=== PATIENT | female | born 1950 | race Two or more races ===

== ENCOUNTER 2025-03-11 16:21 | Inpatient (IN) | payer MEDICARE, OTHER ==
[~2025-03-11] VITALS: Ht 157.5 cm; Wt 109.8 kg
[2025-03-11] MEDS ORDERED: diphenhydrAMINE 50 MG/1 ML VIAL ONE (16:45)
[2025-03-11] MEDS ORDERED: HALOPERIDOL LACTATE 5 MG/1 ML VIAL ONE (16:45)
[2025-03-11] MEDS ORDERED: LORAZEPAM 2 MG/1 ML VIAL ONE (16:46)
[2025-03-11] MEDS: LORAZEPAM 2 MG/1 ML VIAL IM ONE (16:54)
[2025-03-11] MEDS: HALOPERIDOL LACTATE 5 MG/1 ML VIAL IM ONE (16:54)
[2025-03-11] MEDS: diphenhydrAMINE 50 MG/1 ML VIAL IM ONE (16:54)
[2025-03-11 16:57] LABS: PLATELET COUNT (AUTO) 236 K/uL (179-408); RED BLOOD CELL COUNT(AUTO) 4.32 MIL/uL (3.63-4.92); RED CELL DISTRIBUTION WIDTH 13.6 % (12.3-17.7); WHITE BLOOD COUNT (AUTO) 5.2 K/uL (3.8-11.8)
[2025-03-11 17:03] LABS: CREATININE 0.7 mg/dL (0.6-1.3); SODIUM SERUM 139 mmol/L (136-145); UREA NITROGEN, BLOOD 12 mg/dL (7-18)
[2025-03-11 17:04] LABS: ETHANOL < 3 MG/DL (0-10)
[2025-03-11] MEDS ORDERED: FLUT1BLS IH (17:17)
[2025-03-11] MEDS ORDERED: MAGN400O6 PO (17:17)
[2025-03-11] MEDS ORDERED: APIX5TAB PO (17:17)
[2025-03-11] MEDS ORDERED: ACET-2154 PO (17:17)
[2025-03-11] MEDS ORDERED: ASCO500C18 PO (17:17)
[2025-03-11] MEDS ORDERED: BISA10SU61 RC (17:17)
[2025-03-11] MEDS ORDERED: CHOL500062 PO (17:17)
[2025-03-11] MEDS ORDERED: SERT100T PO (17:17)
[2025-03-11] MEDS ORDERED: MULT-594 PO (17:17)
[2025-03-11] MEDS ORDERED: QUET100T PO (17:17)
[2025-03-11] MEDS ORDERED: MONT10TA33 PO (17:17)
[2025-03-11] MEDS ORDERED: BENA1TAB71 PO (17:17)
[2025-03-11] MEDS ORDERED: ALBU2.5V13 NEB (17:17)
[2025-03-11] MEDS ORDERED: ACET-2605 PO (17:17)
[2025-03-11] MEDS ORDERED: FLUT16SP BNOSTRILS (17:17)
[2025-03-11 17:19] LABS: ASPARTATE AMINOTRANSFERASE 17 U/L (15-37); TOTAL PROTEIN, SERUM 7.0 g/dL (6.4-8.2)
[2025-03-11 18:41] LABS: *BILIRUBIN,URIN 1+ (NEGATIVE); *BLOOD, URINE NEGATIVE (NEGATIVE); *COLOR,URINE DARK YELLOW (YELLOW); *KETONES,URINE TRACE (NEGATIVE); *PROTEIN,URINE 1+ (NEGATIVE); *UROBILINOGEN,URINE 8.0 E.U./dl (NORMAL); LEUKOCYTE ESTERASE ,URINE 2+ (NEGATIVE); NITRITE, URINE NEGATIVE (NEGATIVE); UGLUCOSE NEGATIVE (NEGATIVE)
[2025-03-11 18:43] LABS: *CLARITY,URINE HAZY (CLEAR)
[2025-03-11] MEDS ORDERED: MAGNESIUM HYDROXIDE 30 ML LIQUID UDC PO PRN (18:45)
[2025-03-11] MEDS ORDERED: BISACODYL 10 MG SUPP.RECT RC PRN (18:45)
[2025-03-11] MEDS ORDERED: ACETAMINOPHEN ES 500 MG TABLET- SA PATIENTS-PAIN ONLY PO PRN (18:45)
[2025-03-11 18:58] LABS: *AMPHETAMINE, URINE NEGATIVE (NEGATIVE); *BARBITURATE, URINE NEGATIVE (NEGATIVE); *BENZODIAZEPINE, URINE NEGATIVE (NEGATIVE); *CANNABINOID, URINE NEGATIVE (NEGATIVE); *COCCAINE, URINE NEGATIVE (NEGATIVE); *OPIATE, URINE NEGATIVE (NEGATIVE); *PHENCYCLIDINE SCREEN,URINE NEGATIVE (NEGATIVE); FENTANYL, URINE NEGATIVE (NEGATIVE)
[2025-03-11 19:04] LABS: SQUAMOUS EPITHELIAL CELL,UR MANY /HPF (NONE SEEN)
[2025-03-12 00:08] VITALS: BP 122/66
[2025-03-12] MEDS ORDERED: LORAZEPAM 1 MG TABLET PO PRN ×2 (01:00)
[2025-03-12] MEDS ORDERED: MAG HYDROX/AL HYDROX/SIMETH 30 ML LIQUID UDC PO PRN (01:00)
[2025-03-12] MEDS ORDERED: TEMAZEPAM 7.5 MG CAPSULE PO PRN ×2 (01:00)
[2025-03-12] MEDS ORDERED: MAGNESIUM HYDROXIDE 30 ML LIQUID UDC PO PRN (01:00)
[2025-03-12 01:15] VITALS: BP 111/74; TEMP 97.5; O2SAT 95
[2025-03-12] MEDS: BLOOD SUGAR DIAGNOSTIC 1 EACH STRIP VI ONE (01:21)
[2025-03-12] MEDS ORDERED: QUET50TA PO (01:23)
[2025-03-12] MEDS ORDERED: ASCORBIC ACID 500 MG TABLET PO SCH (06:00)
[2025-03-12 07:58] VITALS: BP 120/61; TEMP 98; O2SAT 98
[2025-03-12 08:23] LABS: GLUCOSE FASTING 84.0 mg/dL (70-115)
[2025-03-12] MEDS: CHOLECALCIFEROL 1,000 UNIT TABLET PO SCH (09:25)
[2025-03-12] MEDS: MULTIVITAMINS,THERAPEUTIC TABLET PO SCH (09:25)
[2025-03-12] MEDS: APIXABAN 5 MG TABLET PO SCH (09:25)
[2025-03-12] MEDS: ASCORBIC ACID 500 MG TABLET PO SCH (09:25)
[2025-03-12] MEDS: MONTELUKAST SODIUM 10 MG TABLET PO SCH (09:50)
[2025-03-12] MEDS: HYDROCHLOROTHIAZIDE 12.5 MG CAPSULE PO SCH (09:50)
[2025-03-12] MEDS: BENAZEPRIL HCL 10 MG TABLET PO SCH (09:50)
[2025-03-12] MEDS ORDERED: NA P133E RC (09:57)
[2025-03-12 15:24] VITALS: BP 124/64; TEMP 98; O2SAT 96
[2025-03-12 20:49] VITALS: BP 94/56; TEMP 97.5; O2SAT 96
[2025-03-12] MEDS: QUETIAPINE FUMARATE 25 MG TABLET PO SCH (21:34)
[2025-03-13 08:05] VITALS: BP 101/62; TEMP 98.2; O2SAT 98
[2025-03-13] MEDS: LACTULOSE 20 G/30 ML LIQUID UDC PO ONE (13:04)
[2025-03-13 15:56] VITALS: BP 108/53; TEMP 98; O2SAT 98
[2025-03-13 20:00] VITALS: BP 110/53; TEMP 98.1; O2SAT 95
[2025-03-14 08:44] VITALS: BP 99/50; TEMP 97.5; O2SAT 94
[2025-03-14 16:14] VITALS: BP 123/65; TEMP 97.8; O2SAT 95
[2025-03-14 20:27] VITALS: BP 112/60; TEMP 97.6; O2SAT 95
[2025-03-15 08:12] VITALS: BP 138/62; TEMP 98; O2SAT 94
[2025-03-15] MEDS: ENSURE ENLIVE (VAN) 240 ML LIQUID PO SCH (08:56)
[2025-03-15 16:28] VITALS: BP 136/61; TEMP 97.8; O2SAT 95
[2025-03-16 13:34] LABS: ASPARTATE AMINOTRANSFERASE 13.0 U/L (15-37); TOTAL PROTEIN, SERUM 7.0 g/dL (6.4-8.2)
[2025-03-17] MEDS: GABAPENTIN 100 MG CAPSULE PO SCH (12:06)
[2025-03-17 20:00] VITALS: BP 114/61; TEMP 98.2; O2SAT 97
[2025-03-17] MEDS: ACETAMINOPHEN 325 MG TABLET PO PRN (20:52)
[2025-03-19 08:00] VITALS: BP 120/63; TEMP 98.2; O2SAT 100
[2025-03-19 15:09] VITALS: BP 102/44; TEMP 98; O2SAT 96
[2025-03-19 19:58] VITALS: BP 118/72; TEMP 97.9; O2SAT 98
[2025-03-20 07:55] VITALS: BP 100/56; TEMP 98; O2SAT 98
[2025-03-20 15:40] VITALS: BP 102/77; TEMP 98; O2SAT 98
[2025-03-20 19:56] VITALS: BP 106/66; TEMP 98.1; O2SAT 96
[2025-03-21 08:27] VITALS: BP 102/53; TEMP 98; O2SAT 100
[2025-03-21 15:39] VITALS: BP 107/59; TEMP 98; O2SAT 100
[2025-03-21 19:35] VITALS: BP 113/71; TEMP 98; O2SAT 99
[2025-03-22 09:08] VITALS: BP 93/51; TEMP 98; O2SAT 98
[2025-03-22] MEDS ORDERED: QUETIAPINE FUMARATE 25 MG TABLET PO SCH (13:00)
[2025-03-22] MEDS: QUETIAPINE FUMARATE 25 MG TABLET PO SCH (18:13)
[2025-03-23 08:14] VITALS: BP 155/71; TEMP 98; O2SAT 99
[2025-03-23 16:30] VITALS: BP 103/68; TEMP 98; O2SAT 99
[2025-03-23 19:59] VITALS: BP 126/66; TEMP 98.1; O2SAT 98
[2025-03-24 08:12] VITALS: BP 105/48; TEMP 98; O2SAT 99
[2025-03-24 16:17] VITALS: BP 112/62; TEMP 98; O2SAT 99
[2025-03-24 19:56] VITALS: BP 110/60; TEMP 97.9; O2SAT 96
[2025-03-25 07:45] VITALS: BP 112/60; TEMP 97.8; O2SAT 97
[2025-03-25 08:38] VITALS: BP 112/60
== END 2025-03-25 11:00 | DRG 885 ==
LOC: ER 16:46 → GPS 03-12 00:28
PROVIDERS: ADMIT Psychiatry & Neurology Psychosomatic Medicine; ATTEND Nurse Practitioner Acute Care
DX: F39 Unspecified mood [affective] disorder (principal); J44.89 Other specified chronic obstructive pulmonary disease; G93.41 Metabolic encephalopathy; E44.0 Moderate protein-calorie malnutrition; N39.0 Urinary tract infection, site not specified; F03.92 Unspecified dementia, unspecified severity, with psychotic disturbance; F03.94 Unspecified dementia, unspecified severity, with anxiety; E72.20 Disorder of urea cycle metabolism, unspecified; Z68.41 Body mass index [BMI] 40.0-44.9, adult; B96.89 Other specified bacterial agents as the cause of diseases classified elsewhere; E78.5 Hyperlipidemia, unspecified; G40.909 Epilepsy, unspecified, not intractable, without status epilepticus; I48.91 Unspecified atrial fibrillation; E88.09 Other disorders of plasma-protein metabolism, not elsewhere classified; E66.9 Obesity, unspecified; Z87.01 Personal history of pneumonia (recurrent); Z79.51 Long term (current) use of inhaled steroids; Z79.01 Long term (current) use of anticoagulants; G47.33 Obstructive sleep apnea (adult) (pediatric); Z79.899 Other long term (current) drug therapy
CPT/HCPCS: 36415; 70450; 71045; 84443; 84484; 85025; 85730; 87086; A4606; A4663; G0480; J1200; J1630; J2060